=== PATIENT | male | born 1950 | race Caucasian/White ===

== ENCOUNTER 2016-11-25 19:28 | Emergency (ER) | payer BC ==
[~2016-11-25] VITALS: Ht 182.9 cm; Wt 108.2 kg
[2016-11-25 19:31] VITALS: BP 150/86; TEMP 98.6
[2016-11-25] MEDS ORDERED: AMOXICILLIN 8751 TAB PO (19:43)
[2016-11-25] MEDS ORDERED: SINGULAIR 110 MG/TAB PO (19:44)
[2016-11-25] MEDS ORDERED: IPRATROPIUM BROM3 M1 IH (19:45)
[2016-11-25] MEDS ORDERED: PROAIR HFA0.09 MG/AC IH (19:45)
[2016-11-25 20:14] LABS: BASO # 0.1 (0.0-0.2); BASO % 0.7 % (0.0-2.0); EOS # 0.6 (0.0-0.7); EOS % 6.8 % (0-4.0); GRAN # 5.5 (1.4-6.5); GRAN % 64.6 % (42.2-75.2); HEMATOCRIT 36.6 % (42.0-52.0); HEMOGLOBIN 11.2 g/dl (13.5-18.0); LYMPH # 1.5 (1.2-3.4); LYMPH % 18.1 % (20.0-51.0); MEAN CELL VOLUME 71 fl (80.0-100.0); MEAN CORPUSCULAR HEMOGLOBIN 22 pg (27.0-31.0); MEAN CORPUSCULAR HGB CONC 31 g/dl (33.0-37.0); MEAN PLATELET VOLUME 9.3 fl (7.4-10.4); MONO # 0.8 (0.1-0.6); MONO % 9.6 % (1.7-9.3); PLATELET COUNT 257 K/mm3 (130-400); RED BLOOD COUNT 5.15 M/mm3 (4.20-5.60); REDCELL DISTRIBUTION WIDTH-CV 17.2 % (11.5-14.5); WHITE BLOOD COUNT 8.4 K/mm3 (4.8-10.8)
[2016-11-25 20:36] LABS: ADJUSTED CALCIUM 8.6 mg/dL (8.4-10.2); ALANINE AMINOTRANSFERASE 39 U/L (21-72); ALBUMIN 4.3 gm/dL (3.5-5.0); ALKALINE PHOSPHATASE 118 U/L (50-136); ANION GAP 12 mmol/L (7-16); BILIRUBIN,TOTAL 0.5 mg/dL (0.0-1.0); BLOOD UREA NITROGEN 23 mg/dL (9-20); C-REACTIVE PROTEIN 0.7 mg/dL (0.0-0.9); CALCIUM 8.8 mg/dL (8.4-10.2); CARBON DIOXIDE 25 mmol/L (22-30); CHLORIDE 102 mmol/L (98-107); GLUCOSE 91 mg/dL (74-106); POTASSIUM 3.7 mmol/L (3.4-5.0); SODIUM 139 mmol/L (137-145); TOTAL PROTEIN 6.9 gm/dL (6.4-8.2)
[2016-11-25 20:42] LABS: B-TYPE NATRIURETIC PEPTIDE 34 pg/mL (0-125)
[2016-11-25 20:47] LABS: TROPONIN-I < 0.012 ng/mL (0.000-0.034)
[2016-11-25] MEDS ORDERED: PREDNISONE10 MG PO (21:31)
[2016-11-25 21:39] VITALS: PULSE 74
== END 2016-11-25 21:39 | disposition home or self-care (01) ==
LOC: COL.ER 19:28
PROVIDERS: Emergency Medicine
DX: J20.9 Acute bronchitis, unspecified (principal)
CPT/HCPCS: J7512

== ENCOUNTER 2017-07-06 13:07 | Day surgery (SDC) | payer BC ==
[2017-07-06] VITALS (9 sets, daily range): BP systolic 102–141; BP diastolic 50–82; PULSE 52–67; TEMP 97.2–97.8
[~2017-07-06] VITALS: Ht 182.9 cm; Wt 106.4 kg
[~2017-07-06 13:07] MED LIST: AMOXICILLIN 8751 TAB PO; IPRATROPIUM BROM3 M1 IH; PREDNISONE10 MG PO; PROAIR HFA0.09 MG/AC IH; SINGULAIR 110 MG/TAB PO
[2017-07-06] MEDS ORDERED: PRIL40 PO (13:26)
== END 2017-07-06 21:00 | disposition home or self-care (01) ==
LOC: SDCO 13:07 → JCC 18:35 → SDCO 21:00 → JCC 21:00
DX: K40.20 Bilateral inguinal hernia, without obstruction or gangrene, not specified as recurrent (principal); K21.9 Gastro-esophageal reflux disease without esophagitis; J45.909 Unspecified asthma, uncomplicated; Z83.3 Family history of diabetes mellitus; Z80.3 Family history of malignant neoplasm of breast
CPT/HCPCS: OP; A4315; C1781; J0690; J1100; J1170; J1885; J2405; J2550; J2704; J3010; J7120

== ENCOUNTER → 2019-10-16 | Outpatient (CLI) | payer MEDICARE, BC ==
[~2019-10-16] MED LIST changes: +PRIL40 PO
== END ==
LOC: COL.PUL 10:18
DX: R05 Cough (principal); X39.01XA Exposure to radon, initial encounter

== ENCOUNTER → 2020-02-13 | Outpatient (CLI) | payer MEDICARE, BC | LOC: COL.RAD 07:06 | DX: R10.11 Right upper quadrant pain (principal); R11.0 Nausea | CPT/HCPCS: A9537; J2805 ==

== ENCOUNTER 2021-08-11 08:20 | Outpatient (CLI) | payer MEDICARE, BC ==
[~2021-08-11] VITALS: Ht 182.9 cm; Wt 106.8 kg
[2021-08-11 09:27] VITALS: BP 152/67; PULSE 71; TEMP 98.1
[2021-08-11 09:45] VITALS: BP 143/70; PULSE 63
[2021-08-11 10:00] VITALS: BP 133/69; PULSE 59
[2021-08-11 10:15] VITALS: BP 134/66; PULSE 62
[2021-08-11 10:30] VITALS: BP 137/68; PULSE 57
[2021-08-11 10:45] VITALS: BP 147/71; PULSE 72
== END 2021-08-11 13:08 ==
LOC: EUO 08:20
DX: U07.1 COVID-19 (principal); E66.9 Obesity, unspecified; J98.4 Other disorders of lung
CPT/HCPCS: M0245